=== PATIENT | female | born 1980 | race Caucasian/White ===

== ENCOUNTER 2023-08-29 22:29 | Emergency (ER) | payer BC, SELFPAY ==
[2023-08-29 22:36] VITALS: BP 120/77; PULSE 75; RESP 18; TEMP 36.8; O2SAT 99; BMI 29.5
--- NOTE | 2023-08-29 23:41 | ED.GENADULT ---
HPI - General Adult General Chief complaint: Vaginal Bleeding Stated complaint: On her period - Half dollar sized blood clots Time Seen by Provider: 08/29/23 22:40 History of Present Illness HPI narrative: This 42-year-old female [place] and comes in because of excessive menstrual bleeding that began several hours ago. She states that she was changing her tampon about every half an hour for 3 or 4 episodes and now it seems that her bleeding has slowed down. She has had tubal ligation and states that her period is occurring on schedule for what is regular for her. She does not report any lightheadedness or shortness of breath. She does have a relative who is a nurse here in the OBGYN department and consulted with this person who thought that she should come in. The patient arrives here with normal vital signs. She does have some minor menstrual cramping. She denies any possibility of . Review of Systems Status of ROS: Reports: 10 or more systems reviewed and unremarkable except as noted in History and below Narrative: Constitutional: No fevers, no weight gain or loss. Eyes: No discharge. No vision changes. HENT: No congestion, no sore throat, no ear pain. Cardiovascular: No chest pain, no palpitations. Respiratory: No shortness of breath, no wheezes, no cough. Gastrointestinal: No vomiting, no diarrhea. Genitourinary: No dysuria, no hematuria. Musculoskeletal: Normal range of motion. Skin: No rashes, no pruritis. Neurological: No dizziness, weakness, sensory change, speech change. Endo/Heme/Allergies: No bruising or bleeding. No polydipsia. Pysch: no suicidality, no anxiety, no insomnia. All other systems reviewed and are negative. [facility] Medical History (Updated 08/29/23 @ 23:48 by Magnus Guzmán MD) No significant past medical history Surgical History (Updated 08/29/23 @ 23:47 by Gabe Grewal RN) History of tonsillectomy ?Z90.89 - Acquired absence of other organs (ICD-10) History of ?Z98.891 - History of uterine scar from previous surgery (ICD-10) Exam Narrative: Exam Narrative: Constitutional: Well-developed, well-nourished, no acute distress. HEENT: Normocephalic, atraumatic. Neck: Normal range of motion. Nontender. Supple. Heart: Intact distal pulses. Lungs: No chest discomfort. No wheezes, rhonchi, or rales. Abdomen: Nontender. Back: Normal range of motion. Extremities: Normal range of motion. No injury. Skin: Intact. No rash. Warm. No erythema or pallor. Neurologic: No altered sensation. No weakness. Alert and oriented. Psychiatric: No suicidality. No anxiety or depression. No insomnia. Nursing notes and vitals signs are reviewed. Const: Vital Signs, click to edit/add: Vital Signs - 24 hr 08/29/23 22:36 Temperature 98.2 F Pulse Rate [Right Pulse Oximeter] 75 Respiratory Rate 18 Blood Pressure [Ri ght Upper Arm] 120/77 Pulse Oximetry 99 Oxygen Delivery Me thod Room Air Course Vital Signs Vital signs: Initial Vital Signs Temperature 98.2 F 08/29/23 22:36 Temperature Source Temporal Artery Scan 08/29/23 22:36 Pulse Rate 75 08/29/23 22:36 Respiratory Rate 18 08/29/23 22:36 Blood Pressure 120/77 08/29/23 22:36 Blood Pressure Mean 91 08/29/23 22:36 Blood Pressure Position Sitting 08/29/23 22:36 Pulse Oximetry 99 08/29/23 22:36 Oxygen Delivery Method Room Air 08/29/23 22:36 Vital Signs Temperature 98.2 F 08/29/23 22:36 Pulse Rate 75 08/29/23 22:36 Respiratory Rate 18 08/29/23 22:36 Blood Pressure 120/77 08/29/23 22:36 Pulse Oximetry 99 08/29/23 22:36 Oxygen Delivery Method Room Air 08/29/23 22:36 Temperature 98.2 F 08/29/23 22:36 Pulse Rate 75 08/29/23 22:36 Respiratory Rate 18 08/29/23 22:36 Blood Pressure 120/77 08/29/23 22:36 Pulse Oximetry 99 08/29/23 22:36 Oxygen Delivery Method Room Air 08/29/23 22:36 Medical Decision Making MDM Narrative Medical decision making narrative: This patient comes in reporting excessive amount of bleeding for her current menses. She states that she feels normal otherwise. She does not report any lightheadedness or shortness of breath. She arrives here with normal vital signs. The patient states that she does have a thalassemia trait and has had some anemia in the past. She is not exhibiting signs or symptoms that would require ultrasound or CT imaging at this time. A lab results is ordered to evaluate her hemoglobin level. The patient states that is sufficient for this visit. She states that the bleeding has seemed to dissipate and plans to return to her home for further follow-up as needed. Lab results have not yet returned at the end of my shift and the overnight physician will look after hemoglobin results. Discharge Plan Discharge Clinical Impression: Dysfunctional uterine bleeding Patient Disposition: Home, Self-Care Condition: Stable Additional Instructions: Use [id number] medicines as needed and directed. Follow up with MD for ongoing management if symptoms are persistent. Return if worsening. Stand Alone Forms: [employer] Info Instructions
[2023-08-29 23:58] LABS: Basophils Absolute Auto 0.05 K/uL (0.00-0.30); Basophils Percent Auto 0.6 % (0.0-3.0); Eosinophils Absolute Auto 0.25 K/uL (0.00-0.50); Eosinophils Percent Auto 2.8 % (0.0-7.0); Hematocrit 33.8 % (33.0-51.0); Hemoglobin* 10.7 gm/dL (12.0-16.0); Immature Granulocytes Abs Auto 0.07 K/uL (0.00-0.30); Immature Granulocytes Pct Auto 0.8 %; Lymphocytes Absolute Auto 2.95 K/uL (0.90-2.90); Mean Corpuscular HGB Conc 32 gm/dL (32-36); Mean Corpuscular Hemoglobin 22 pg (26-34); Mean Corpuscular Volume 70 fL (80-100); Monocytes Percent Auto 9.1 % (0.0-11.0); Neutrophils Absolute Auto 4.81 K/uL (1.7-7.0); Neutrophils Percent Auto 53.7 % (42.0-72.0); Platelet Count* 412 K/uL (140-440); RDW Coefficient of Variation % 15.4 % (11.5-15.5); Red Blood Count 4.86 m/uL (4.00-5.20); White Blood Count* 8.94 K/uL (4.50-11.00)
[2023-08-30 00:03] LABS: Slide Review Reflex No
[2023-08-30 00:27] VITALS: BP 118/74; PULSE 79; RESP 18; TEMP 36.8; O2SAT 99
[2023-08-30 00:38] VITALS: BP 118/74; PULSE 79; RESP 18; TEMP 36.8
== END 2023-08-30 00:38 | disposition home or self-care (01) ==
PROVIDERS: Emergency Provider Emergency Medicine Emergency Medical Services
DX: N93.9 Abnormal uterine and vaginal bleeding, unspecified (principal)
CPT/HCPCS: 36415; 85025; 99283; 99284